=== PATIENT | female | born 1965 | race Caucasian/White ===

== ENCOUNTER 2021-12-28 18:04 | Emergency (ER) | payer MEDICAID ==
[~2021-12-28] VITALS: Ht 160 cm; Wt 138.5 kg
[2021-12-28 18:06] VITALS: BP 196/102
--- NOTE | 2021-12-28 18:15 | NUR ---
C/O 12/03 LEFT KNEE PAIN, SWELLING X 1 WEEK. DENIES TRAUMA. BP 196/102 AT THIS TIME. PMH: HTN
--- NOTE | 2021-12-28 19:29 | NUR ---
Patient discharged with v/s stable. Written and verbal after care instructions given and explained. Patient verbalized understanding. Ambulatory with steady gait. All questions addressed prior to discharge. Advised to follow up with PMD.
== END 2021-12-28 19:29 | disposition home or self-care (01) ==
LOC: MED 18:04
DX: M25.562 Pain in left knee (principal); I10 Essential (primary) hypertension
CPT/HCPCS: 73562; 99283